=== PATIENT | female | born 1940 | race Caucasian/White ===

== ENCOUNTER 2022-12-23 10:29 | Outpatient (AMB) | payer OTHER, SELFPAY ==
--- OUTSIDE RECORDS SUMMARY | 2022-12-23 10:30 | XMS_ITS | Continuity of Care Document ---
Author Name Unknown Organization [facility] Care Address [address] [place] [address]- Care Team Providers Care Planer Mill Grader Name Role Phone Goldy Abarca Primary Care Physician Encounter [facility] [place] Date(s): 01/16/21 - 02/15/21 [facility] [address] [place] [address]- Attending Physician: Leda Thakur Admitting Physician: Admtr, Leda Referring Physician: Admtr, Ar8 Allergies, Adverse Reactions, Alerts Substance Reaction Severity Status penicillin Active Keflex Active Medications acetaminophen 325 mg oral tablet 650 mg, 2, tablet, By Mouth, Every 6 hours, PRN, Refills 0, Maintenance, Pain , Mild, 06/06/20 11:00:00 EST, Partial fill upon patient request if the prescription is for a schedule II opioid drug. Start Date: 06/06/20 Status: Ordered
--- OUTSIDE RECORDS SUMMARY | 2022-12-23 10:30 | XMS_ITS | Continuity of Care Document ---
Author Name Unknown Organization [facility] Address [address] [place] [address]- Care Team Providers Care Mortgage Protection Specialist Name Role Phone Goldy Abarca Primary Care Physician Encounter [facility] [place] Date(s): 12/19/21 - 01/18/22 [facility] [address] [place] [address]- Allergies, Adverse Reactions, Alerts Substance Reaction Severity Status penicillin rash Active Keflex rash Active Medications acetaminophen 325 mg oral tablet 650 mg, By Mouth, Every 4 hours, PRN, Temperature Greater than 100.5, Refills 0, Maintenance, Pain , Mild, 10/28/21 10:36:00 EDT, Partial fill upon patient request if the prescription is for a schedule II opioid drug. Start Date: 10/28/21 Status: Ordered Eliquis 5 mg oral tablet 1 tablet = 5 mg, By Mouth, 2 times a day, hold warfarin for 3 days prior to your next scheduled INRdraw. when INR <2, can permanently discontinue warfarin and start eliquis at 5mg BID, # 60 tablet, 11 Refills, Maintenance, 09/17/21 10:46:00 EDT, Tab... Start Date: 09/17/21 Status: Ordered sertraline 25 mg oral tablet 1 tablet = 25 mg, By Mouth, Daily, # 30 tablet, 0 Refills, Maintenance, 10/28/21 3:47:00 EDT, Tablet, Partial fill upon patient request if the prescription is for a schedule II opioid drug. Start Date: 10/28/21 Status: Ordered Problem List Condition Effective Dates Status Health Status Inform ant Deep vein thrombosis(Confirmed) Active Obese class I(Confirmed) Active
--- OUTSIDE RECORDS SUMMARY | 2022-12-23 10:31 | XMS_ITS | Continuity of Care Document ---
Author Name Unknown Organization [facility] Address [address] [place] [address]- Care Team Providers Care Social Service Liaison Name Role Phone Briana Teague MD Primary Care Physician [phone] [place] [facility] [place]21 - 06/01/21 [facility] [address] [place] [address]- [place] Allergies, Adverse Reactions, Alerts Substance Reaction Severity Status penicillin Active Keflex Active Medications cyclobenzaprine 5 mg oral tablet 1 tablet = 5 mg, By Mouth, 3 times a day, 0 Refills, Maintenance, 04/10/21 10:41:00 EDT, Partial fill upon patient request if the prescription is for a schedule II opioid drug. Start Date: 04/10/21 Status: Ordered Eliquis 5 mg oral tablet 1 tablet = 5 mg, By Mouth, 2 times a day, # 60 tablet, 0 Refills, Maintenance, 02/26/21 9:07:00 EDT, Tablet, Partial fill upon patient request if the prescription is for a schedule II opioid drug. Start Date: 02/26/21 Status: Ordered warfarin 2.5 mg oral tablet 2 tablet = 5 mg, By Mouth, Daily, # 42 tablet, 0 Refills, Maintenance, 04/24/21 13:36:00 EST, Tablet, [id number], Partial fill upon patient request if the prescription is for a schedule II opioid drug., 153, cm, 04/24/21 11:53:00 EST, Height,... Start Date: 04/24/21 Stop Date: 05/15/21 Status: Ordered warfarin 2.5 mg oral tablet 2 tablet = 5 mg, By Mouth, Daily, # 42 tablet, 0 Refills, Maintenance, 05/06/21 10:15:00 EST, Tablet, [id number], Partial fill upon patient request if the prescription is for a schedule II opioid drug., 153, cm, 04/24/21 11:53:00 EST, Height,... Start Date: 05/06/21 Stop Date: 05/27/21 Status: Ordered Problem List Condition Effective Dates Status Health Status Inform ant Obese class I(Confirmed) Active
--- OUTSIDE RECORDS SUMMARY | 2022-12-23 10:31 | XMS_ITS | Continuity of Care Document ---
Author Name Unknown Organization [facility] Address [address] [place] [address]- Care Team Providers Care Road Train Driver Name Role Phone Briana Teague MD Primary Care Physician Encounter [facility] [place] Date(s): 05/22/21 - 06/21/21 [facility] [address] [place] [address]- Allergies, Adverse Reactions, Alerts Substance Reaction Severity [...]
--- OUTSIDE RECORDS SUMMARY | 2022-12-23 10:31 | XMS_ITS | Continuity of Care Document ---
Author Name Unknown Organization [facility] Address [address] [place] [address]- Care Team Providers Care Palletizer Name Role Phone Briana Teague MD Primary Care Physician [place] [facility] [place]/24[place]21 - 05/24/21 [facility] [address] [place] [address]- Allergies, Adverse Reactions, Alerts Substance Reaction Severity [...] 0 Refills, Maintenance, 04/24/21 13:36:00 EST, Tablet, [facility]/pharmacy #[id number], Partial fill upon patient request if the prescription is for a schedule II opioid drug., 153, cm, 04/24/21 11:53:00 EST, Height,... Start Date: 04/24/21 Stop Date: 05/15/21 Status: Ordered warfarin 2.5 mg oral tablet 2 tablet = 5 mg, By Mouth, Daily, # 42 tablet, 0 Refills, Maintenance, 05/06/21 10:15:00 EST, Tablet, [facility]/pharmacy #[id number], Partial fill upon patient request if the prescription is for a schedule II opioid drug., 153, cm, 04/24/21 11:53:00 EST, Height,... Start Date: 05/06/21 Stop Date: 05/27/21 Status: Ordered Problem List Condition Effective Dates Status Health Status Inform ant Obese class I(Confirmed) Active
--- OUTSIDE RECORDS SUMMARY | 2022-12-23 10:31 | XMS_ITS | Continuity of Care Document ---
Author Name Unknown Organization [facility] ter Address [address] [place] [address]- Care Team Providers Care Primer Powder Blender Wet Name Role Phone Jessica MONACO, Connie Primary Care Physician Encounter [facility] [place] ACCT R [id number] Date(s): 05/07/21 - 05/07/[address] [address]- Attending Physician: Blanche Correa PharmD Allergies, Adverse Reactions, Alerts Substance Reaction Severity [...] 0 Refills, Maintenance, 04/24/21 13:36:00 EST, Tablet, [facility]/pharmacy #[id number], Partial fill upon patient request if the prescription is for a schedule II opioid drug., 153, cm, 04/24/21 11:53:00 EST, Height,... Start Date: 04/24/21 Stop Date: 05/15/21 Status: Ordered warfarin 2.5 mg oral tablet 2 tablet = 5 mg, By Mouth, Daily, # 42 tablet, 0 Refills, Maintenance, 05/06/21 10:15:00 EST, Tablet, [facility]/pharmacy #[id number], Partial fill upon patient request if the prescription is for a schedule II opioid drug., 153, cm, 04/24/21 11:53:00 EST, Height,... Start Date: 05/06/21 Stop Date: 05/27/21 Status: Ordered Problem List Condition Effective Dates Status Health Status Inform ant Obese class I(Confirmed) Active
--- OUTSIDE RECORDS SUMMARY | 2022-12-23 10:31 | XMS_ITS | Continuity of Care Document ---
Author Name Unknown Organization [facility] ancer Care Address [address] [place] [address]- Care Team Providers Care Semiautomatic Taper Operator Name Role Phone Goldy Abarca Primary Care Physician [place] [facility] [place](s): 06/25/22 - 07/25/22 [facility] [address] [place] [address]- Attending Physician: Leda Thakur Admitting Physician: Leda Thakur Referring Physician: AdmtrLeda Allergies, Adverse Reactions, Alerts Substance Reaction Severity [...] By Mouth, 2 times a day, # 180 tablet, 0 Refills, Maintenance, 07/13/22 11:36:00 EST, Tablet, [facility]/pharmacy #[id number], Partial fill upon patient request if the prescription is for a schedule II opioid drug., 154.94, cm, 12/19/21 15:27:00 E... Start Date: 07/13/22 Status: Ordered sertraline 25 mg oral tablet 1 tablet = 25 mg, By Mouth, Daily, # 30 tablet, 0 Refills, Maintenance, 10/28/21 3:47:00 EDT, Tablet, Partial fill upon patient request if the prescription is for a schedule II opioid drug. Start Date: 5/24/22 Status: Ordered Problem List Condition Confirmation Course Effective Dates Status Health St atus Informant Deep vein thrombosis Confirmed Active Obese class I Confirmed Active Note * Event Display: IR Special Procedures, Non-BH Authored Date: * Event Display: Non BH Lab Results Authored Date: * Event Display: IR Special Procedures, Non-BH Authored Date: * Event Display: CT Scan Chest, Non- BH Authored Date: * Event Display: Ultrasound Lower Extremity, Non-BH Authored Date: Patient Care team information Care Team Personnel Name: Fay Roy PharmD Position: [facility] Associate Professional Member Role: Lifetime Consulting Provider Address: Address: [address] [place] [address] [place] [address]- Name: Goldy Abarca Position: Reference Physician Member Role: PCP Address: Address: [address] [place] [address]- Care Team Related Persons Name: MARIANNE GRAY Address: home [address] [place] [address]
--- OUTSIDE RECORDS SUMMARY | 2022-12-23 10:31 | XMS_ITS | Continuity of Care Document ---
Author Name Unknown Organization [facility] Address [address] [place] [address]- Care Team Providers Care Landfill Gas Collection Operator Name Role Phone Goldy Abarca Primary Care Physician En[place] [facility] [place]s): 11/12/21 - 02/18/22 [facility] [address] [place] [address]- Discharge Disposition: A-D/C Home Attending Physician: Connie Lopez MD Admitting Physician: Connie Lopez MD Referring Physician: Goldy Abarca Allergies, Adverse Reactions, Alerts Substance Reaction Severity [...] vein thrombosis(Confirmed) Active Obese class I(Confirmed) Active Vital Signs Most recent to oldest [Reference Range]: 1 Height 154.94 cm (12/19/21 3:27 PM) Weight 79.2 kg (12/19/21 3:27 PM) Pulse Rate [55-90 bpm] 102 bpm *H* (12/19/21 3:27 PM) Body Mass Index [18.5-24.99] 32.99 *>HHI* (12/19/21 3:27 PM) Blood Pressure [90-138/55-84 mm Hg] 124/ 87mm Hg (12/19/21 3:27 PM) Temperature [96.8-100.4 DegF] 96.8 DegF (12/19/21 3:27 PM) Blood pressure sites Arm, left (12/19/21 3:27 PM) Temperature Route Temporal (12/19/21 3:27 PM) Dry Weight 79.2 kg (12/19/21 3:27 PM) Weight Obtained Via Standing scale (12/19/21 3:27 PM) Dry Weight Obtained Via Standing scale (12/19/21 3:27 PM) Care Team Personnel Name: Goldy Abarca Address: [address] [place] [id number]
--- OUTSIDE RECORDS SUMMARY | 2022-12-23 10:31 | XMS_ITS | Continuity of Care Document ---
Author Name Unknown Organization [facility] Address [address] [address]- Care Team Providers Care Rig Site Engineer Name Role Phone Briana Teague MD Primary Care Physician [phone] [place] [facility] [place]07[place]21 - 06/06/21 [facility] [address] [address] [place] Allergies, Adverse Reactions, Alerts Substance Reaction Severity [...] Refills, Maintenance, 04/24/21 13:36:00 EST, Tablet, [facility]/pharmacy #[id number], Partial fill upon patient request if the prescription is for a schedule II opioid drug., 153, cm, 04/24/21 11:53:00 EST, Height,... Start Date: 04/24/21 Stop Date: 05/15/21 Status: Ordered warfarin 2.5 mg oral tablet 2 tablet = 5 mg, By Mouth, Daily, # 42 tablet, 0 Refills, Maintenance, 05/06/21 10:15:00 EST, Tablet, [facility]/pharmacy #[id number], Partial fill upon patient request if the prescription is for a schedule II opioid drug., 153, cm, 04/24/21 11:53:00 EST, Height,... Start Date: 05/06/21 Stop Date: 05/27/21 Status: Ordered Problem List Condition Effective Dates Status Health Status Inform ant Obese class I(Confirmed) Active
--- OUTSIDE RECORDS SUMMARY | 2022-12-23 10:31 | XMS_ITS | Continuity of Care Document ---
Author Name Unknown Organization [facility] Address [address] [place] [address]- Care Team Providers Care Marble Ceiling Installer Name Role Phone Jessica MONACO, Connie Primary Care Physician Encounter [facility] [place] ACCT R [id number] Date(s): 03/03/21 - 05/08/21 [facility] [address] [place] [address]- Attending Physician: Cornelio Orosco MD Admitting Physician: Cornelio Orosco MD Referring Physician: Briana Teague MD Allergies, Adverse Reactions, Alerts Substance Reaction Severity [...] 0 Refills, Maintenance, 04/24/21 13:36:00 EST, Tablet, [facility]/pharmacy #[id number], Partial fill upon patient request if the prescription is for a schedule II opioid drug., 153, cm, 04/24/21 11:53:00 EST, Height,... Start Date: 04/24/21 Stop Date: 05/15/21 Status: Ordered warfarin 2.5 mg oral tablet 2 tablet = 5 mg, By Mouth, Daily, # 42 tablet, 0 Refills, Maintenance, 05/06/21 10:15:00 EST, Tablet, [facility]/pharmacy #[id number], Partial fill upon patient request if the prescription is for a schedule II opioid drug., 153, cm, 04/24/21 11:53:00 EST, Height,... Start Date: 05/06/21 Stop Date: 05/27/21 Status: Ordered Problem List Condition Effective Dates Status Health Status Inform ant Obese class I(Confirmed) Active
--- OUTSIDE RECORDS SUMMARY | 2022-12-23 10:31 | XMS_ITS | Continuity of Care Document ---
Author Name Unknown Organization [facility] Address [address] [place] [address]- Care Team Providers Care Tv News Director Name Role Phone Goldy Abarca Primary Care Physician Encounter [facility] [place] Date(s): 06/10/21 - 07/10/21 [facility] [address] [place] [address]- Attending Physician: Leda Thakur Admitting Physician: Leda Thakur Referring Physician: AdmtrLeda Allergies, Adverse Reactions, Alerts Substance Reaction Severity Status penicillin rash Active Keflex rash Active Medications cyclobenzaprine 5 mg oral tablet 1 tablet = 5 mg, By Mouth, 3 times a day, 0 Refills, Maintenance, 04/10/21 10:41:00 EDT, Partial fill upon patient request if the prescription is for a schedule II opioid drug. Start Date: 04/10/21 Status: Ordered Problem List Condition Effective Dates Status Health Status Inform ant Deep vein thrombosis(Confirmed) Active Obese class I(Confirmed) Active
--- OUTSIDE RECORDS SUMMARY | 2022-12-23 10:31 | XMS_ITS | Continuity of Care Document ---
Author Name Unknown Organization [facility] Address [address] [place] [address]- Care Team Providers Care Bar Assistant Name Role Phone Goldy Abarca Primary Care Physician [place] [facility] [place]15[place] 10/15/21 [facility] [address] [place] [address]- Attending Physician: Leda Thakur Admitting Physician: Leda Thakur Referring Physician: AdmtrLeda Allergies, Adverse Reactions, Alerts Substance Reaction Severity Status penicillin rash Active Keflex rash Active Medications Eliquis 5 mg oral tablet 1 tablet = 5 mg, By Mouth, 2 times a day, hold warfarin for 3 days prior to your next scheduled INRdraw. when INR <2, can permanently discontinue warfarin and start eliquis at 5mg BID, # 60 tablet, 11 Refills, Maintenance, 09/17/21 10:46:00 EDT, Tab... Start Date: 09/17/21 Status: Ordered warfarin 2.5 mg oral tablet See Instructions, Take 1-2 tablets daily as directed by the anticoagulation clinic, # 60 tablet, 5 Refills, Maintenance, 07/28/21 11:18:00 EST, Tablet, [id number], Partial fill upon patient request if the prescription is for a schedule II opio... Start Date: 07/28/21 Status: Ordered Problem List Condition Effective Dates Status Health Status Inform ant Deep vein thrombosis(Confirmed) Active Obese class I(Confirmed) Active
--- OUTSIDE RECORDS SUMMARY | 2022-12-23 10:31 | XMS_ITS | Continuity of Care Document ---
Author Name Unknown Organization [facility] Address [address] [place] [address]- Care Team Providers Care Food Inspector Name Role Phone Briana Teague MD Primary Care Physician Encounter [facility] [place] Date(s): 06/10/21 - 06/17/21 [facility] [address] [place] [address]- Attending Physician: Goldy Villalpando MD Admitting Physician: Goldy Villalpando MD Referring Physician: Briana Teague MD Allergies, [...] 0 Refills, Maintenance, 04/24/21 13:36:00 EST, Tablet, [facility]/pharmacy #[id number], Partial fill upon patient request if the prescription is for a schedule II opioid drug., 153, cm, 04/24/21 11:53:00 EST, Height,... Start Date: 04/24/21 Stop Date: 05/15/21 Status: Ordered warfarin 2.5 mg oral tablet 2 tablet = 5 mg, By Mouth, Daily, # 42 tablet, 0 Refills, Maintenance, 05/06/21 10:15:00 EST, Tablet, [facility]/pharmacy #[id number], Partial fill upon patient request if the prescription is for a schedule II opioid drug., 153, cm, 04/24/21 11:53:00 EST, Height,... Start Date: 05/06/21 Stop Date: 05/27/21 Status: Ordered Problem List Condition Effective Dates Status Health Status Inform ant Obese class I(Confirmed) Active
--- OUTSIDE RECORDS SUMMARY | 2022-12-23 10:31 | XMS_ITS | Continuity of Care Document ---
Author Name Unknown Organization [facility] ter Address [address] [place] [address]- Care Team Providers Care Bag Loader Name Role Phone Goldy Abarca Primary Care Physician Encounter [facility] [place] Date(s): 08/27/21 - 08/27/[address] [address]- Encounter Diagnosis Acid reflux(Final) - 08/27/21 Discharge Disposition: A-D/C Home Attending Physician: Chadwick Thurston MD Admitting Physician: Chadwick Thurston MD Referring Physician: Not on Staff, Referring MD Allergies, Adverse Reactions, Alerts Substance Reaction Severity Status penicillin rash Active Keflex rash Active Medications cyclobenzaprine 5 mg oral tablet 1 tablet = 5 mg, By Mouth, 3 times a day, 0 Refills, Maintenance, 04/10/21 10:41:00 EDT, Partial fill upon patient request if the prescription is for a schedule II opioid drug. Start Date: 04/10/21 Status: Ordered pantoprazole 20 mg oral delayed release tablet 1 tablet = 20 mg, By Mouth, Daily, # 14 tablet, 0 Refills, Maintenance, 08/27/21 6:43:00 EDT, CR Tablet, 154.94, cm, 06/25/21 14:33:00 EST, Height, 77.27, kg, 06/25/21 14:33:00 EST, Dry Weight Start Date: 08/27/21 Status: Ordered warfarin 2.5 mg oral tablet See Instructions, Take 1-2 tablets daily as directed by the anticoagulation clinic, # 60 tablet, 5 Refills, Maintenance, 07/28/21 11:18:00 EST, Tablet, [id number], Partial fill upon patient request if the prescription is for a schedule II opio... Start Date: 07/28/21 Status: Ordered Problem List Condition Effective Dates Status Health Status Inform ant Deep vein thrombosis(Confirmed) Active Obese class I(Confirmed) Active Results Radiology Reports * Exam Date Time Procedure Performing Provider Status 08/27/21 4:27 AM Chest 2 Views Frontal and Lat Adela Leone; Jermaine (Verified) Notes: (Chest 2 Views Frontal and Lat) Reason For Exam: Chest Pain;Other: RESULT: Chest 2 Views Frontal and Lat Chest 2 Views Frontal and Lat Hx of Present Illness: Pt sts that she went to bed fine, but I woke up about 3am and couldn't catch my breath...and I had a terrible burning in my throat . Sxs resolved but my throat doesn't' feel quite right . +cough presently- no cp; no back pain; no abd pain; no n v; +di; Reason: Chest Pain; Clinical Question(s): CHF. COMPARISON: None. FINDINGS: LINES AND TUBES: None. LUNGS AND PLEURA: Mildly prominent vascular markings. No focal consolidation. No significant pleural effusion. No pneumothorax. HEART, MEDIASTINUM AND CARLY: Heart is normal in size. Bilateral hilar fullness. BONES AND SOFT TISSUES: No acute abnormality. IMPRESSION: Mild pulmonary vascular congestion. Bilateral hilar fullness could be due to vascular prominence but lymphadenopathy is also in the differential diagnosis. I have personally reviewed the images and I agree with this report. WSN: [id number] Ordering Physician: Cheng Her Dictated By: Willis Feng DO Dictated Date/Time: 08/27/21 8:05 am Reviewed By: Jorge Luis Urrutia MD Signed By: Jorge Luis Urrutia MD Signed Date/Time: 08/27/21 8:10 am Transcribed By: ANUM Transcribed Date/Time: 08/27/21 8:02 am Vital Signs Most recent to oldest [Reference Range]: 1 2 3 Oxygen Saturation [94-100 %] 100 % (08/27/21 6:48 AM) 100 % (08/27/21 5:46 AM) 98 % (08/27/21 4:02 AM) Pulse Rate [55-90 bpm] 80 bpm (08/27/21 6:48 AM) 79 bpm (08/27/21 5:46 AM) 80 bpm (08/27/21 4:02 AM) Blood Pressure [90-138/55-84 mm Hg] 144/72mm Hg *H* (08/27/21 6:48 AM) 148/94mm Hg *H* (08/27/21 5:46 AM) 151/71mm Hg *H* (08/27/21 4:02 AM) Respiratory Rate [16-30 br/min] 20 br/min (08/27/21 6:48 AM) 18 br/min (08/27/21 5:46 AM) 20 br/min (08/27/21 4:02 AM) Temperature [96.8-100.4 DegF] 98.6 DegF (08/27/21 6:48 AM) 98.7 DegF (08/27/21 5:46 AM) 98.9 DegF (08/27/21 4:02 AM) Mode of Delivery (Oxygen) Room air (08/27/21 6:48 AM) Room air (08/27/21 5:46 AM) Room air (08/27/21 4:02 AM) Temperature Route Oral (08/27/21 5:46 AM) Oral (08/27/21 4:02 AM)
--- OUTSIDE RECORDS SUMMARY | 2022-12-23 10:31 | XMS_ITS | Continuity of Care Document ---
Author Name Unknown Organization [facility] Address [address] [place] [address]- Care Team Providers Care Program Director Name Role Phone Briana Teague MD Primary Care Physician Encounter [facility] [place] Date(s): 05/09/21 - 06/08/21 [facility] [address] [place] [address]- Allergies, Adverse Reactions, Alerts Substance Reaction Severity [...]
--- OUTSIDE RECORDS SUMMARY | 2022-12-23 10:31 | XMS_ITS | Continuity of Care Document ---
Author Name Unknown Organization [facility] Address [address] [place] [address]- Care Team Providers Care Gaming Associate Name Role Phone Briana Teague MD Primary Care Physician En[place] [facility] [place] Date(s): 05/06/21 - 06/05/21 [facility] [address] [place] [address]- Allergies, Adverse Reactions, Alerts Substance Reaction Severity [...]
--- OUTSIDE RECORDS SUMMARY | 2022-12-23 10:31 | XMS_ITS | Continuity of Care Document ---
Author Name Unknown Organization [facility] ter Address [address] [place] [address]- Care Team Providers Care Ordnance Engineering Technician Name Role Phone Goldy Abarca Primary Care Physician ( [phone] Encounter [facility] [place] Date(s): 10/27/21 - 10/28/[address] [address]- Encounter Diagnosis Shoulder dislocation(Final) - 10/27/21 Humeral fracture(Final) - 10/27/21 Fall(Final) - 10/28/21 Discharge Disposition: A-D/C Home Attending Physician: Nadia Quiroz MD Admitting Physician: Roshan MONACO, Arnulfo Referring Physician: Not on Staff, Referring MD [...] EDT, Tab... Start Date: 09/17/21 Status: Ordered HYDROmorphone Inj 0.5 mg, Injection, IV Push Slowly, Once, STAT, 10/28/21 3:54:00 EDT, Stop date 10/28/21 3:54:00 EDT Start Date: 10/28/21 Stop Date: 10/28/21 Status: Completed oxyCODONE 5 mg oral tablet 5 mg, 1, tablet, By Mouth, Every 6 hours, PRN, for 3 days, # 12 tablet, Refills 0, Tot. Refills 0, Acute 10/31/21 10:36:00 EDT, Pain , Moderate, 10/28/21 10:36:00 EDT, Route to Pharmacy Electronically, [facility], Partial fill upon patie... Start Date: 10/28/21 Stop Date: 10/31/21 Status: Ordered sertraline 25 mg oral tablet [...] Exam Date Time Procedure Performing Provider Status 10/27/21 8:18 PM Shoulder Min 2 Views Left Desrosier, E shaq; Auth (Verified) Notes: (Shoulder Min 2 Views Left) Reason For Exam: Post-Reduction RESULT: Shoulder Min 2 Views Left Shoulder Min 2 Views Left, 4 views Hx of Present Illness: Pt. is from home with Left shoulder pain since this am.; Reason: Post-Reduction; Clinical Question(s): Other:; post reduction; Special Instructions: Please get an axillary COMPARISON: None. FINDINGS: There is no dislocation. There is a comminuted fracture in the humeral head with mild displacement in the greater trochanter. There is also fragmentation in the inferior anterior glenoid. Increased interstitial markings in the visualized lung field. IMPRESSION: 1. Comminuted Hill-Sachs and Bankart fractures with normal alignment of the glenohumeral joint. 2. Interval development of pulmonary edema. WSN: [id number] Ordering Physician: Crystal Centeno Dictated By: Jorge Luis Urrutia MD Dictated Date/Time: 10/27/21 8:34 pm Reviewed By: Jorge Luis Urrutia MD Signed By: Jorge Luis Urrutia MD Signed Date/Time: 10/27/21 8:34 pm Transcribed By: ANUM Transcribed Date/Time: 10/27/21 8:31 pm * Exam Date Time Procedure Performing Provider Status 10/27/21 7:00 PM Shoulder 1 View Left Fay Erickson; Auth (Verified) Notes: (Shoulder 1 View Left) Reason For Exam: with Pain;Trauma RESULT: Shoulder 1 View Left Shoulder 1 View Left, 1 view Hx of Present Illness: Pt. is from home with Left shoulder pain sinc this am.; Reason: Trauma; withPain; Clinical Question(s): Fracture COMPARISON: 10/28/2019 2:55 PM and correlation with CT same date at 4:58 PM. FINDINGS: Single view demonstrates reduction of left shoulder dislocation. Mildly displaced lateral humeral head/tuberosity fracture. IMPRESSION: Single view demonstrates reduction of left shoulder dislocation. Mildly displaced lateral humeral head/tuberosity fracture. WSN: [id number] Ordering Physician: Yo Bowser Dictated By: Azul Nolan MD, I Dictated Date/Time: 10/27/21 7:15 pm Reviewed By: Azul Nolan MD, I Signed By: Azul Nolan MD, I Signed Date/Time: 10/27/21 7:15 pm Transcribed By: ANUM Transcribed Date/Time: 10/27/21 7:11 pm * Exam Date Time Procedure Performing Provider Status 10/27/21 2:50 PM Shoulder Min 2 Views Left Phil Machado; Auth (Verified) Notes: (Shoulder Min 2 Views Left) Reason For Exam: with Pain;Trauma RESULT: Shoulder Min 2 Views Left Humerus Min 2 Views Left, Shoulder Min 2 Views Left, views Reason: Trauma; with Pain; Clinical Question(s): Fracture COMPARISON: None. FINDINGS: Left humeral head is dislocated anteriorly and inferiorly with a large acute appearing Hill-Sachs deformity. IMPRESSION: Fracture dislocation left shoulder. WSN: [id number] Ordering Physician: Reta Cabral Dictated By: Andres Herrera MD Dictated Date/Time: 10/27/21 3:29 pm Reviewed By: Andres Herrera MD Signed By: Andres Herrera MD Signed Date/Time: 10/27/21 3:29 pm Transcribed By: ANUM Transcribed Date/Time: 10/27/21 3:27 pm * Exam Date Time Procedure Performing Provider Status 10/27/21 2:50 PM Humerus Min 2 Views Left Tone Machado; Auth (Verified) Notes: (Humerus Min 2 Views Left) Reason For Exam: with Pain;Trauma RESULT: Humerus Min 2 Views Left Humerus Min 2 Views Left, Shoulder Min 2 Views Left, views Reason: Trauma; with Pain; Clinical Question(s): Fracture COMPARISON: None. FINDINGS: Left humeral head is dislocated anteriorly and inferiorly with a large acute appearing Hill-Sachs deformity. IMPRESSION: Fracture dislocation left shoulder. WSN: [id number] Ordering Physician: Reta Cabral Dictated By: Andres Herrera MD Dictated Date/Time: 10/27/21 3:29 pm Reviewed By: Andres Herrera MD Signed By: Andres Herrera MD Signed Date/Time: 10/27/21 3:29 pm Transcribed By: ANUM Transcribed Date/Time: 10/27/21 3:27 pm Vital Signs Most recent to oldest [Reference Range]: 1 2 3 Oxygen Saturation [94-100 %] 99 % (10/28/21 12:40 PM) 98 % (10/28/21 10:32 AM) 98 % (10/28/21 4:44 AM) Pulse Rate [55-90 bpm] 84 bpm (10/28/21 12:40 PM) 67 bpm (10/28/21 10:32 AM) 70 bpm (10/28/21 4:44 AM) Blood Pressure [90-138/55-84 mm Hg] 132/70mm Hg (10/28/21 12:40 PM) 124/78mm Hg (10/28/21 10:32 AM) 125/64mm Hg (10/28/21 4:44 AM) Respiratory Rate [16-30 br/min] 20 br/min (10/28/21 12:40 PM) 16 br/min (10/28/21 10:32 AM) 14 br/min *L* (10/28/21 5:11 AM) Temperature [96.8-100.4 DegF] 98.8 DegF (10/28/21 4:44 AM) 99.3 DegF (10/27/21 5:13 PM) 99.1 DegF (10/27/21 1:47 PM) Liters per Minute 2 L/min (10/27/21 9:00 PM) 3 L/min (10/27/21 7:00 PM) Mode of Delivery (Oxygen) Room air (10/28/21 12:40 PM) Room air (10/28/21 10:32 AM) Room air (10/28/21 4:44 AM) Blood pressure sites Arm, left (10/28/21 12:40 PM) Arm, right (10/28/21 4:44 AM) Arm, right (10/27/21 9:00 PM) Temperature Route Oral (10/27/21 5:13 PM) Oral (10/27/21 1:47 PM)
--- OUTSIDE RECORDS SUMMARY | 2022-12-23 10:31 | XMS_ITS | Continuity of Care Document ---
Author Name Unknown Organization [facility] ter Address [address] [place] [address]- Care Team Providers Care State Editor Name Role Phone Goldy Abarca Primary Care Physician Encounter [facility] [place] Date(s): 07/09/21 - 07/09/[address] [address] Discharge Disposition: A-D/C Home Attending Physician: Cornelio Orosco MD Admitting Physician: Cornelio Orosco MD Referring Physician: Cornelio Orosco MD Allergies, Adverse Reactions, Alerts Substance Reaction [...] Most recent to oldest [Reference Range]: 1 Oxygen Saturation [94-100 %] 97 % (07/09/21 7:19 AM) Pulse Rate [55-90 bpm] 80 bpm (07/09/21 7:19 AM) Blood Pressure [90-138/55-84 mm Hg] 126/ 70mm Hg (07/09/21 7:19 AM) Respiratory Rate [16-30 br/min] 18 br/mi n (07/09/21 7:19 AM) Temperature [96.8-100.4 DegF] 97.6 DegF (07/09/21 7:19 AM) Mode of Delivery (Oxygen) Room air (07/09/21 7:19 AM) Blood pressure sites Arm, left (07/09/21 7:19 AM) Temperature Route Temporal (07/09/21 7:19 AM)
--- OUTSIDE RECORDS SUMMARY | 2022-12-23 10:31 | XMS_ITS | Continuity of Care Document ---
Author Name Unknown Organization [facility] Address [address] [place] [address]- Care Team Providers Care Credit Representative Name Role Phone Goldy Abarca Primary Care Physician ( [phone] Encounter [facility] [place] Date(s): 06/25/22 - 11/07/22 [facility] [address] [place] [address]- Discharge Disposition: A-D/C Home Attending Physician: Connie [...] 0 Refills, Maintenance, 07/13/22 11:36:00 EST, Tablet, [id number], Partial fill upon patient request if the prescription is for a schedule II opioid drug., 154.94, cm, 12/19/21 15:27:00 E... Start Date: 07/13/22 Status: Ordered lidocaine 5% topical film 1 patch, Topically, Daily, PRN Pain , Mild, remove after 12 hours, # 13 each, 0 Refills, Maintenance, 09/07/22 10:49:00 EDT, Film, Partial fill upon patient request if the prescription is for a schedule II opioid drug. Start Date: 09/07/22 Status: Ordered Problem List Condition Confirmation Course Effective Dates Status Health St atus Informant Deep vein thrombosis Confirmed Active Obese class I Confirmed Active Vital Signs Most recent to oldest [Reference Range]: 1 Height 154.94 cm (09/07/22 10:39 AM) Weight 80.5 kg (09/07/22 10:39 AM) Oxygen Saturation [94-100 %] 98 % (09/07/22 10:39 AM) Pulse Rate [55-90 bpm] 92 bpm *H* (09/07/22 10:39 AM) Body Mass Index [18.5-24.99 kg/m2] 33.53 kg/m2 *>HHI* (09/07/22 10:39 AM) Blood Pressure [90-138/55-84 mm Hg] 124/ 83mm Hg (09/07/22 10:39 AM) Temperature [96.8-100.4 DegF] 98.6 DegF (09/07/22 10:39 AM) Blood pressure sites Arm, left (09/07/22 10:39 AM) Temperature Route Oral (09/07/22 10:39 AM) Dry Weight 80.5 kg (09/07/22 10:39 AM) Weight Obtained Via Standing scale (09/07/22 10:39 AM) Dry Weight Obtained Via Standing scale (09/07/22 10:39 AM) Note * Elba Isbell: PERFORM, SIGN, VERIFY Event Display: Patient Education/Instruction Authored Date: [facility] *Heme/Onc Adult Clinical Summary Name JOCELYN KILLIAN Age 81 Years 1940 PCP Goldy Abarca PCP Visit Date 06/25/2022 14:45:00 Additional Instructions: Scheduled Appointments?? Future Appointments ?No Future Appointments Scheduled Follow-Up Instructions ?? With: Address: When: Connie Jessica [address] [place] [address] [place] [address] Business (1) 09/09/2023 10:30 AM Diagnosis Medications: Please continue your medications until treatment is completed or stopped by your provider. Discuss any questions related to medications with your provider. New Medications [id number], [address] [place] [id number], [phone] apixaban (Eliquis 5 mg oral tablet) 1 tab(s) Oral twice a day. Refills: 0. Next Dose: Medications to Continue with No Changes These medications were not printed or sent to your pharmacy Acetaminophen (acetaminophen 325 mg oral tablet) 650 Milligram Oral every 4 hours as needed Pain , Mild. Temperature Greater than 100.5. Next Dose: Lidocaine Topical (lidocaine 5% topical film) 1 patch(es) Topically Daily as needed Pain , Mild. remove after 12 hours. Next Dose: No Longer Take the Following Medications Sertraline (sertraline 25 mg oral tablet) 1 tab(s) Oral Daily. Allergy Info:?? Keflex; penicillin Medications Given This Visit Future Orders ?No future orders Vital Signs Height 154.94 cm Weight 80.5 kg BMI 33.53 kg/m2 Blood Pressure 124 mm Hg/83 mm Hg Temperature 98.6 DegF Pulse Rate 92 bpm Respiratory Rate 02 Sat Mode of Delivery 98 %/ You can now view a summary of your hospital visit from the comfort of your home through a free online portal called [facility]. [facility] is a website that allows you to securely view your medical information including discharge summary, medications and follow-up visits. ??You can alsosend a secure electronic message to your doctor???s office to request appointments, renew medications or just ask a question. You can enroll at [email or web address] or register during your next office visit. Disclaimer:?? The information provided is of a general nature and is intended to be used in conjunction with the recommendations and advice of your health care practitioner. ??Every effort has been made to ensure that the information provided is accurate and complete at the time it is provided to you however, as your needs change, or, as new ??information becomes available, different or additional instructions may be required. If you have questions, please consult with your primary care provider or pharmacist, as appropriate. ??This information is not intended to serve as substitution for assessment and evaluation by a qualified health care provider. If you do not have a primary care provider, you may find a [facility] provider by calling [facility] at [phone]. For information about the plan of care including goals and instructions for your diagnosis, please see the patient education orders section of this document. Patient Education Materials?? The content of this educational material or handout may have been modified, supplemented, or adapted from its original content and format to support your individualized medical care. Patient Care team information Care Team Personnel Name: Fay Roy PharmD Position: [facility] Associate Professional Member Role: Lifetime Consulting Provider Address: Address: [address] [place] [address] [place] [address]- Name: Goldy Abarca Position: Reference Physician Member Role: PCP Address: Address: [address] [place] [address] - Care Team Related Persons Name: MARIANNE GRAY Address: home [address] [place], [place] Name: SAAD GRAY Address: home [address] [place] [address]
--- OUTSIDE RECORDS SUMMARY | 2022-12-23 10:31 | XMS_ITS | Continuity of Care Document ---
Author Name Unknown Organization [facility] Address [address] [place] [address]- Care Team Providers Care Range Aid Name Role Phone Briana Teague MD Primary Care Physician Encounter [facility] [place] Date(s): 03/07/21 - 04/06/21 [facility] [address] [place], [place] [address] Attending Physician: Leda Thakur Admitting Physician: AdmtrLeda Referring Physician: Admtr, Ar8 Allergies, Adverse Reactions, Alerts Substance Reaction Severity Status penicillin Active Keflex Active Medications Eliquis 5 mg oral tablet 1 tablet = 5 mg, By Mouth, 2 times a day, # 60 tablet, 0 Refills, Maintenance, 02/26/21 9:07:00 EDT, Tablet, Partial fill upon patient request if the prescription is for a schedule II opioid drug. Start Date: 02/26/21 Status: Ordered
--- OUTSIDE RECORDS SUMMARY | 2022-12-23 10:31 | XMS_ITS | Continuity of Care Document ---
Author Name Unknown Organization [facility] Address [address] [place] [address]- Care Team Providers Care Skiagrapher Name Role Phone Briana Teague MD Primary Care Physician Encounter [facility] Date(s): 03/03/21 - 03/10/21 [facility] [address] [place] [address]- Attending Physician: Cornelio Orosco MD Admitting Physician: Cornelio Orosco MD Referring Physician: Nagi Rosales MD Allergies, Adverse Reactions, Alerts Substance Reaction Severity Status penicillin Active Keflex Active Medications Eliquis 5 mg oral tablet 1 tablet = 5 mg, By Mouth, 2 times a day, # 60 tablet, 0 Refills, Maintenance, 02/26/21 9:07:00 EDT, Tablet, Partial fill upon patient request if the prescription is for a schedule II opioid drug. Start Date: 02/26/21 Status: Ordered Vital Signs Most recent to oldest [Reference Range]: 1 Height 153 cm (03/03/21 1:14 PM) Weight 75.9 kg (03/03/21 1:14 PM) Pulse Rate [55-90 bpm] 68 bpm (03/03/21 1:14 PM) Body Mass Index [18.5-24.99] 32.42 *>HHI* (03/03/21 1:14 PM) Blood Pressure [90-138/55-84 mm Hg] 128/ 84mm Hg (03/03/21 1:14 PM) Blood pressure sites Arm, right (03/03/21 1:14 PM) Weight Obtained Via Patient/family state d (03/03/21 1:14 PM)
--- OUTSIDE RECORDS SUMMARY | 2022-12-23 10:31 | XMS_ITS | Continuity of Care Document ---
Author Name Unknown Organization [facility] Address [address] [place] [address]- Care Team Providers Care Nc Manager Name Role Phone Goldy Abarca Primary Care Physician [place] [facility] [place] 11/12/21 - 12/12/21 [facility] [address] [place] [address]- Attending Physician: Leda Thakur Admitting Physician: Leda [...]
--- OUTSIDE RECORDS SUMMARY | 2022-12-23 10:31 | XMS_ITS | Continuity of Care Document ---
Author Name Unknown Organization [facility] Address [address] [place] [address]- Care Team Providers Care Lining Feller Name Role Phone Goldy Abarca Primary Care Phys[id number] Date[facility] 01/16[facility] - 07/05/21 [facility] [address] [place] [address]- Discharge Disposition: A-D/C Home Attending Physician: Connie Lopez MD Admitting Physician: Connie Lopez MD Referring Physician: Sabas Lyle MD Allergies, Adverse Reactions, Alerts Substance Reaction [...] Status Inform ant Obese class I(Confirmed) Active Vital Signs Most recent to oldest [Reference Range]: 1 2 3 Height 153 cm (04/24/21 11:53 AM) 153 cm (04/10/21 10:23 AM) 153 cm (02/26/21 8:55 AM) Weight 81.3 kg (04/24/21 11:53 AM) 79.9 kg (04/10/21 10:23 AM) 77.9 kg (02/26/21 8:55 AM) Pulse Rate [55-90 bpm] 83 bpm (04/24/21 11:53 AM) 84 bpm (04/10/21 10:23 AM) 75 bpm (02/26/21 8:55 AM) Body Mass Index [18.5-24.99] 34.73 *>HHI* (04/24/21 11:53 AM) 34.13 *>HHI* (04/10/21 10:23 AM) 33.28 *>HHI* (02/26/21 8:55 AM) Blood Pressure [90-138/55-84 mm Hg] 144/83mm Hg *H* (04/24/21 11:53 AM) 136/85mm Hg (04/10/21 10:23 AM) 133/70mm Hg (02/26/21 8:55 AM) Temperature [96.8-100.4 DegF] 99.3 DegF (04/24/21 11:53 AM) 98.0 DegF (04/10/21 10:23 AM) 97.5 DegF (02/26/21 8:55 AM) Blood pressure sites Arm, left (04/24/21 11:53 AM) Arm, left (04/10/21 10:23 AM) Arm, right (02/26/21 8:55 AM) Temperature Route Temporal (04/24/21 11:53 AM) Temporal (04/10/21 10:23 AM) Temporal (02/26/21 8:55 AM) Dry Weight 81.3 kg (04/24/21 11:53 AM) 79.9 kg (04/10/21 10:23 AM) 77.9 kg (02/26/21 8:55 AM) Weight Obtained Via Standing scale (04/24/21 11:53 AM) Standing scale (04/10/21 10:23 AM) Standing scale (02/26/21 8:55 AM) Dry Weight Obtained Via Standing scale (04/24/21 11:53 AM) Standing scale (04/10/21 10:23 AM) Standing scale (02/26/21 8:55 AM)
--- OUTSIDE RECORDS SUMMARY | 2022-12-23 10:31 | XMS_ITS | Continuity of Care Document ---
Author Name Unknown Organization [facility] Address [address] [place] [address]- Care Team Providers Care Director Of Casino Name Role Phone Not on Staff, PCP Primary Care Physician Unavail able Encounter [facility] [place] Date(s): 06/04/20 - 06/07/[address] [address]- Discharge Disposition: A-D/C Home Attending Physician: Heath Acveedo MD Admitting Physician: Jazmin Lang MD Referring Physician: Not on Staff, Referring [...] opioid drug. Start Date: 06/06/20 Status: Ordered levoFLOXacin 500 mg oral tablet 1 tablet = 500 mg, By Mouth, Every 24 hours, for 5 days, # 5 tablet, 0 Refills, Acute 06/12/20 9:10:00 EST, 06/07/20 9:10:00 EST, Tablet, [id number], Partial fill upon patient request if the prescription is for a schedule II opioid drug., 153,... Start Date: 06/07/20 Stop Date: 06/12/20 Status: Ordered metroNIDAZOLE 500 mg oral tablet 1 tablet = 500 mg, By Mouth, 3 times a day, for 5 days, # 15 tablet, 0 Refills, Acute 06/12/20 9:10:00 EST, 06/07/20 9:10:00 EST, Tablet, [id number], Partial fill upon patient request if the prescription is for a schedule II opioid drug., 153,... Start Date: 06/07/20 Stop Date: 06/12/20 Status: Ordered Results Orders for Microbiology Reports Name Date Stool Culture 06/04/20 Blood Culture 06/04/20 Blood Culture #2 06/04/20 Microbiology Reports TEST:Stool Culture STATUS:Auth (Verified) BODY SITE: SOURCE:STOOL COLLECTED DATE/TIME:06/05/20 12:15 PM Stool Culture SPECIMEN DESCRIPTION : STOOL NOT IN TRISH TAN PRESERVATIVE SPECIAL REQUESTS : NONE CULTURE : SPECIMEN NOT RECEIVED IN [facility] TRANSPORT MEDIA, UNABLE TO TEST FOR SHIGA TOXIN. CONTACT [facility] FOR COLLECTION AND TRANSPORT INSTRUCTION AND SUPPLIES NO GROWTH REPORT STATUS : FINAL 06/07/2020 TEST:Blood Culture STATUS:Unauthenticated BODY SITE: SOURCE:Blood COLLECTED DATE/TIME:06/04/20 3:50 AM Blood Culture SPECIMEN DESCRIPTION : BLOOD NO SITE SPECIAL REQUESTS : NONE CULTURE : NO GROWTH 3 DAYS REPORT STATUS : PRELIMINARY REPORT TEST:Blood Culture, Second Order STATUS:Unauthenticated BODY SITE: SOURCE:Blood COLLECTED DATE/TIME:06/04/20 3:50 AM Blood Culture, Second Order SPECIMEN DESCRIPTION : BLOOD NO SITE SPECIAL REQUESTS : NONE CULTURE : NO GROWTH 3 DAYS REPORT STATUS : PRELIMINARY REPORT Vital Signs Most recent to oldest [Reference Range]: 1 2 3 Height 153 cm (06/07/20 7:43 AM) 153 cm (06/07/20 3:41 AM) 153 cm (06/06/20 11:52 PM) Weight 75 kg (06/05/20 6:37 PM) Oxygen Saturation [94-100 %] 97 % (06/07/20 7:43 AM) 95 % (06/07/20 3:41 AM) 96 % (06/06/20 11:52 PM) Pulse Rate [55-90 bpm] 80 bpm (06/07/20 7:43 AM) 76 bpm (06/07/20 3:41 AM) 92 bpm *H* (06/06/20 11:52 PM) Body Mass Index [18.5-24.99] 32.04 *>HHI* (06/05/20 6:37 PM) Blood Pressure [90-138/55-84 mm Hg] 137/70mm Hg (06/07/20 7:43 AM) 127/67mm Hg (06/07/20 3:41 AM) 130/58mm Hg (06/06/20 11:52 PM) Respiratory Rate [16-30 br/min] 16 br/min (06/07/20 7:43 AM) 18 br/min (06/07/20 3:41 AM) 18 br/min (06/06/20 11:52 PM) Temperature [96.8-100.4 DegF] 97.7 DegF (06/07/20 7:43 AM) 98.3 DegF (06/07/20 3:41 AM) 98.7 DegF (06/06/20 11:52 PM) Liters per Minute 0 L/min (06/03/20 12:55 PM) Mode of Delivery (Oxygen) Room air (06/07/20 7:43 AM) Room air (06/07/20 3:41 AM) Room air (06/06/20 11:52 PM) Blood pressure sites Arm, right (06/07/20 7:43 AM) Arm, right (06/07/20 3:41 AM) Arm, right (06/06/20 11:52 PM) Temperature Route Oral (06/07/20 7:43 AM) Oral (06/07/20 3:41 AM) Oral (06/06/20 11:52 PM) Dry Weight 75 kg (06/05/20 6:37 PM)
--- NOTE | 2022-12-23 10:32 | AM.OFFWIN_ITS ---
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 She had severe shingles rash on her left-sided upper chest and neck back in March,. After rash resolved, she continue to have pain along area rash was located. She reports this is constant and feels like someone is slapping her neck. She denies any tingling sensation. She has been using multiple OTC topical products such as tigerbalm without significant relief. She also reports that she is in between PCPs. She recently changed her health insurance, and her current PCP does not except this insurance. 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 [facility] Social History Patient Tobacco Use Status: Former Tobacco user Review of Systems Const All systems reviewed & are unremarkable except as noted in HPI and below Physical Exam Vital Signs: Last Vital Signs Temp 97.9 F 12/23/22 10:36 Pulse 90 12/23/22 10:36 BP 130/80 12/23/22 10:36 Pulse Ox 98 12/23/22 10:36 Oxygen Delivery Method Room Air 12/23/22 10:36 Const General: cooperative, healthy appearing, comfortable and no acute distress Neck Other: tender/sensitive skin extending from left shoulder, along upper left chest, up her L neck to posterior left ear. Neck: Yes normal visual inspection, Yes full ROM and Yes no lymphadenopathy Resp Effort & Inspection: normal respiratory effort and able to speak in complete sentences Auscultation: clear to auscultation bilaterally Cardio Jugular venous distension: no JVD Palpation: normal PMI Rate: regular rate Rhythm: regular rhythm Skin General skin exam: no rashes or lesions noted Extrem General: Yes capillary refill normal and Yes no clubbing, cyanosis or edema Psych Appearance: grossly normal Mental Status: mental status grossly normal Speech and movement: Normal speech and movement present Assessment & Plan Assessment & Plan (1) Post herpetic neuralgia: Code(s): B02.29 - Other postherpetic nervous system involvement Plan: Patient has post herpetic neuralgia in C3/C4 distribution as described above. This is causing her constant, daily pain. She has been using topical products. She is not interested in additional medication such as gabapentin at this time. I discussed referral to pain management office for discussion of potential interventional/injection therapy. She is interested in this and would like referral. (2) On anticoagulant therapy: Code(s): Z79. - shelter (current) use of anticoagulants Plan: Patient is on Eliquis 5 mg p.o. b.i.d. for history of DVT. She is currently in between primary care providers, as her new insurance was not accepted by her PCP office. I encouraged her to contact her insurance company, as they might be able to provide her with in-home or telehealth visits in the interim. I also urged her to stop front desk person prior to leaving today and obtain appointment for new patient visit with a primary care provider within this practice if possible. In the meantime, I will provide 1 month refill of her Eliquis, and great reviewed that this is not something that can continue to be refilled from a walk-in care standpoint. She verbalizes understanding of this. 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 - shelter (current) use of anticoagulants Coding Level of Care Code Est Pt Level 3 (88610) Diagnoses Post herpetic neuralgia B02.29 On anticoagulant therapy
--- OUTSIDE RECORDS SUMMARY | 2022-12-23 10:32 | XMS_ITS | Continuity of Care Document ---
Author Name Unknown Organization [facility] Address [address] [place] [address]- Care Team Providers Care Chain Splitter Name Role Phone Goldy Abarca Primary Care Physician ( [phone] [place] [facility] [place]21 [place] 11/12/21 [facility] [address] [place] [address]- Discharge Disposition: A-D/C Home Attending Physician: Connie [...] oldest [Reference Range]: 1 Height 154.94 cm (09/16/21 1:35 PM) Weight 82.0 kg (09/16/21 1:35 PM) Pulse Rate [55-90 bpm] 99 bpm *H* (09/16/21 1:35 PM) Body Mass Index [18.5-24.99] 34.16 *>HHI* (09/16/21 1:35 PM) Blood Pressure [90-138/55-84 mm Hg] 133/ 73mm Hg (09/16/21 1:35 PM) Temperature [96.8-100.4 DegF] 97.7 DegF (09/16/21 1:35 PM) Blood pressure sites Arm, right (09/16/21 1:35 PM) Temperature Route Temporal (09/16/21 1:35 PM) Dry Weight 82.0 kg (09/16/21 1:35 PM) Weight Obtained Via Standing scale (09/16/21 1:35 PM) Dry Weight Obtained Via Standing scale (09/16/21 1:35 PM)
--- OUTSIDE RECORDS SUMMARY | 2022-12-23 10:32 | XMS_ITS | Continuity of Care Document ---
Author Name Unknown Organization [facility] Address [address] [place] [address]- Care Team Providers Care Concrete Engineer Name Role Phone Jessica MONACO, Connie Primary Care Physician [place] [facility] [place] 04/08/21 - 05/08/21 [facility] [address] [place] [address]- Attending Physician: Leda Thakur Admitting Physician: AdmtrLeda [...] 0 Refills, Maintenance, 04/24/21 13:36:00 EST, Tablet, [id number], Partial fill upon patient request if the prescription is for a schedule II opioid drug., 153, cm, 04/24/21 11:53:00 EST, Height,... Start Date: 04/24/21 Stop Date: 05/15/21 Status: Ordered warfarin 2.5 mg oral tablet 2 tablet = 5 mg, By Mouth, Daily, # 42 tablet, 0 Refills, Maintenance, 05/06/21 10:15:00 EST, Tablet, [id number], Partial fill upon patient request if the prescription is for a schedule II opioid drug., 153, cm, 04/24/21 11:53:00 EST, Height,... Start Date: 05/06/21 Stop Date: 05/27/21 Status: Ordered Problem List Condition Effective Dates Status Health Status Inform ant Obese class I(Confirmed) Active
--- OUTSIDE RECORDS SUMMARY | 2022-12-23 10:32 | XMS_ITS | Continuity of Care Document ---
Author Name Unknown Organization 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 [address] [place] [address]- Attending Physician: Lex Adams DO Referring Physician: Goldy Abarca Allergies, Adverse Reactions, [...] oldest [Reference Range]: 1 Height 153 cm (03/07/21 11:29 AM) Oxygen Saturation [94-100 %] 99 % (03/07/21 11:29 AM) Pulse Rate [55-90 bpm] 71 bpm (03/07/21 11:29 AM) Blood Pressure [90-138/55-84 mm Hg] 106/ 80mm Hg (03/07/21 11:29 AM) Respiratory Rate [16-30 br/min] 17 br/mi n (03/07/21 11:29 AM) Temperature [96.8-100.4 DegF] 97.8 DegF (03/07/21 11:29 AM) Mode of Delivery (Oxygen) Room air (03/07/21 11:29 AM) Blood pressure sites Arm, left (03/07/21 11:29 AM) Temperature Route Temporal (03/07/21 11:29 AM)
[2022-12-23 10:36] VITALS: BP 130/80; PULSE 90; TEMP 36.6; O2SAT 98
== END 2022-12-23 11:07 | disposition home or self-care (01) ==
PROVIDERS: Visit Provider Nurse Practitioner Family
DX: B02.29 Other postherpetic nervous system involvement (principal); Z79.01 Long term (current) use of anticoagulants
CPT/HCPCS: 99213

== ENCOUNTER 2023-06-23 09:35 | Outpatient (AMB) | payer MEDICARE, SELFPAY ==
--- NOTE | 2023-06-23 09:37 | MHC.PC.OV ---
Vital Signs 06/23/23 09:39 Height 4 ft 11.5 in Weight 178 lb 8 oz BMI 35.4 BP 132/68 Blood Pressure Location Lt brachial Position Sitting Pulse 81 Pulse Source Pulse Oximeter Pulse Oximetry (%) 93 Oxygen Delivery Method Room Air Intake Visit Reasons: New patient, patient is on blood thinners Intake Note: Patient is a new patient here to establish care for Chronic pain, History of blood clots. Transferring care from Dr Blevins ([facility]). Medical records have not been requested and have not received. Per daughter inlaw needs to be evaluated for Dementia. Certified Public Accountant Required: No Community Program Assistant: Present Accompanied by: Daughter Allergies Cefalexin Adverse Reaction (Mild, Uncoded 06/23/23 09:39) Rash penicillins Adverse Reaction (Mild, Uncoded 06/23/23 09:39) Rash Tobacco use date assessed: 06/23/23 Fall risk assessment: 1 Fall in past year Last assessed Fall Risk: 06/23/23 Dental Screening Dental Screen Date: 06/23/23 Did you have a dental visit in the last 12 months?: Yes Did you have a dental problem in the last 6 months where you did not have access to dental care?: No Was dental information given to patient?: Patient has dentist HPI New patient, patient is on blood thinners HPI Details 82-year-old female presents to the office requesting to establish her care here. She is transferring her care from a primary care physician who works for [facility]. She is accompanied by her [id number]. Chronic medical conditions include deep vein thrombosis in the left leg, and post herpetic neuralgia. Currently the burning symptoms on the left side of the chest, the remnants of the herpes zoster is the more pressing concern. She has been trying Lyrica with minimal relief. Patient lives alone, her family is very close by, she drives, shops alone. Her [id number] spoke to the medical record librarians teacher, expressing concerns of dementia. [facility] Medical History (Updated 06/23/23 @ 13:32 by Nickolas Marr MD) Postherpetic neuralgia Deep vein thrombosis of left lower extremity Surgical History (Updated 06/23/23 @ 09:52 by KHLOE Lundberg) History of hysterectomy History of surgery of head Family History (Updated 06/23/23 @ 09:52 by KHLOE Lundberg) Other Mental health disorder Social History (Updated 06/23/23 @ 09:38 by KHLOE Lundberg) Housing: House Alcohol intake: never Patient Tobacco Use Status: Former Tobacco user e-Cigarette/Vaping Use: Never Used Second Hand Smoke Exposure: Yes service: No Current occupational status: retired Cognitive needs: No Hearing needs: No Vision needs: Yes (reading glasses) Questionnaire PHQ-9 Over the last 2 weeks, how often have you been bothered by any of the following problems? 1. Little interest or pleasure in doing things: not at all 2. Feeling down, depressed, or hopeless: not at all 3. Trouble falling or staying asleep, or sleeping too much: not at all 4. Feeling tired or having little energy: not at all 5. Poor appetite or overeating: not at all 6. Feeling bad about yourself - or that you are a failure or have let yourself or your family down: not at all 7. Trouble concentrating on things, such as reading the newspaper or watching television: not at all 8. Moving or speaking so slowly that other people could have noticed. Or the opposite - being so fidgety or restless that you have been moving around a lot more than usual: not at all 9. Thoughts that you would be better off or of hurting yourself in some way: not at all Total score: 0 Depression Screening Interpretation: Negative Depression Screening Done: Yes Source: Developed by Drs. Sarhtak Lang, Nory Prasad, Abdelrahman Jordan and colleagues, with an educational cassie from [employer]. Thrive Questionnaire Date Thrive assessed: 06/23/23 I am a: Patient What is your living situation today?: I have a steady place to live Within the past 12 months, did the food you bought not last and you didn't have the money to get more?: Never true Within the past 12 months, did you worry whether your food would run out before you got money to buy more?: Never true Do you have trouble paying for medicines?: No Do you have trouble getting transportation to medical appointments?: No Do you have trouble paying your heating and electricity bill?: No Do you have trouble taking care of your child, family member or friend?: No Do you have trouble with day-to-day activities such as bathing, preparing meals, shopping, managing finances, etc.?: No Are you currently unemployed and looking for a job?: No Are you interested in more education?: No AUDIT C Alcohol Use Questionnaire (AUDIT-C) 1. How often do you have a drink containing alcohol?: Never Total Score: 0 DOROTHEA-7 AMB Questionnaire DOROTHEA-7 Date DOROTHEA - 7 assessed: 06/23/23 Feeling nervous, anxious, or on edge: 0 = Not at all Not being able to stop or control worryin = Not at all Worrying too much about different things: 0 = Not at all Trouble relaxin = Not at all Being so restless that it is hard to sit still: 0 = Not at all Becoming easily annoyed or irritable: 0 = Not at all Feeling afraid as if something awful might happen: 0 = Not at all Total DOROTHEA-7 score (0-4 normal; 5-9 mild; 10-14 moderate; 15-21 severe): 0 Source: Developed by Drs. Sarthak Lang, Nory Prasad, Abdelrahman Jordan and colleagues, with an educational cassie from [employer]. Physical exam (Primary Care) Vital Signs: Last Vital Signs Pulse 81 06/23/23 09:39 BP 132/68 06/23/23 09:39 Pulse Ox 93 06/23/23 09:39 Oxygen Delivery Method Room Air 06/23/23 09:39 BMI result Body Mass Index 35.4 Tobacco/Smoking Status: Tobacco use Status Tobacco use date assessed 06/23/23 06/23/23 09:54 Patient Tobacco Use Status Former Tobacco user 06/23/23 09:54 e-Cigarette/Vaping Use Never Used 06/23/23 09:54 PHQ-9: PHQ-9 Score PHQ-9: Total score 0 06/23/23 09:56 Depression Screening Interpretation: Negative Thrive Assessment: Date of Thrive Assessment Date Thrive assessed 06/23/23 06/23/23 09:54 Const General: cooperative and healthy appearing Nutritional Appearance: well nourished Orientation/consciousness: patient oriented x3 Limitations: no limitations HENMT Head: Yes normal to inspection Eyes General: appearance normal, both eyes and all related structures Neck Neck: Yes normal visual inspection Chest Chest palpation & inspection: normal palpation of entire chest wall Resp Effort & Inspection: normal respiratory effort Neuro General: patient oriented x3 Assessment and Plan Assessment & Plan (1) Postherpetic neuralgia: Code(s): B02.29 - Other postherpetic nervous system involvement Plan: Continue the pregabalin. Capsaicin ointment added to the regimen. Amitriptyline was offered but patient did not want to take the medication. (2) Deep vein thrombosis of left lower extremity: Code(s): I82.402 - Acute embolism and thrombosis of unspecified deep veins of left lower extremity Plan: Patient has been taking apixaban for the past 5 years. She should follow-up with her heat treat inspector to determine if the medication is for life. Patient has agreed to follow-up with her heat treat inspector at [facility]. Coding Level of Care Code Est Pt Level 4 (79947) Diagnoses Postherpetic neuralgia B02.29 Deep vein thrombosis of left lower extremity I82.402
[2023-06-23 09:39] VITALS: BP 132/68; PULSE 81; O2SAT 93; BMI 35.4
== END 2023-06-23 10:43 | disposition home or self-care (01) ==
PROVIDERS: PCP Internal Medicine; Visit Provider Internal Medicine
DX: B02.29 Other postherpetic nervous system involvement (principal); I82.402 Acute embolism and thrombosis of unspecified deep veins of left lower extremity
CPT/HCPCS: 99214

== ENCOUNTER 2023-06-29 09:24 | Outpatient (REF) | payer MEDICARE, SELFPAY ==
[2023-06-29 11:14] LABS: Hematocrit 39.9 % (37.0-47.0); Hemoglobin 12.7 g/dl (12.0-16.0); Mean Corpuscular HGB Conc 31.8 g/dl (31.0-35.0); Mean Corpuscular Hemoglobin 27.2 pg (27.0-33.0); Mean Corpuscular Volume 85.4 fL (80.0-98.0); Platelet Count 257 X10*3/uL (160-400); Red Blood Count 4.67 X10*6/uL (4.20-5.50); Red Cell Distribution Width 13.5 % (11.0-16.0); White Blood Count 7.3 X10*3/uL (4.8-10.8)
[2023-06-29 11:21] LABS: Appearance Urine Clear; Color Urine Yellow; Glucose Urine UA Negative (Negative); Leukocyte Esterase Urine Trace (Negative); Nitrite Urine Negative (Negative); PH 5.5 (5.0-9.0); UMIC TRIGGER UA YES; Urine Blood Small (1+) (Negative); Urine Ketones Negative (Negative); Urine Protein Negative (Neg-Trace)
[2023-06-29 11:38] LABS: Bacteria Urine None Seen (None Seen); Hyaline Casts Urine 0-2 /LPF (0-2); WBC Urine 0-5 /HPF (0-5)
[2023-06-29 12:37] LABS: Alanine Aminotransferase 14 U/L (0-31); Albumin Level 4.1 g/dL (3.5-5.0); Alkaline Phosphatase 98 U/L (39-117); Anion Gap 12 (12-20); Aspartate Amino Transferase 15 U/L (5-31); Bilirubin Direct 0.3 mg/dL (0.0-0.5); Bilirubin Total 0.8 mg/dL (0.0-1.0); Blood Urea Nitrogen 8 mg/dL (9-16); Calcium 9.2 mg/dL (8.4-10.2); Carbon Dioxide 26 mmol/L (22-29); Chloride 109 mmol/L (96-108); Cholesterol 193 mg/dL (<200); Estimated Glomerular Filt Rate > 60; Glucose Random 103 mg/dL (60-115); HDL Cholesterol 46 mg/dL (>40); LDL Cholesterol Calculated 123 mg/dL (<100); Potassium 4.2 mmol/L (3.3-5.1); Sodium 143 mmol/L (135-145); Thyroid Stimulating Hormone 0.54 uIU/mL (0.32-4.0); Total Protein 7.4 g/dL (6.5-8.0); Triglycerides 121 mg/dL (<150)
== END 2023-06-29 09:25 | disposition home or self-care (01) ==
LOC: HO.LAB 09:24
PROVIDERS: PCP Internal Medicine; Visit Provider Internal Medicine
DX: B02.29 Other postherpetic nervous system involvement (principal); I82.402 Acute embolism and thrombosis of unspecified deep veins of left lower extremity
CPT/HCPCS: 36415; 80048; 80061; 80076; 81001; 84443; 85027

== ENCOUNTER 2023-09-23 13:24 | Outpatient (AMB) | payer MEDICARE, SELFPAY ==
--- NOTE | 2023-09-23 13:28 | MHC.PC.OV ---
Vital Signs 09/23/23 13:32 Height 4 ft 11.5 in Weight 192 lb 4 oz BMI 38.2 BP 130/76 Blood Pressure Location Lt brachial Position Sitting Pulse 72 Pulse Source Pulse Oximeter Pulse Oximetry (%) 95 Oxygen Delivery Method Room Air Intake Visit Reasons: 3 month f/u Intake Note: Patient is here to follow up on DVT, Posterpetic Neuralgia. 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: No Wind Turbine Electrical Engineer: Not Required per policy Accompanied by: Self / Same As Patient Allergies Cefalexin Adverse Reaction (Mild, Uncoded 09/29/23 11:06) Rash penicillins Adverse Reaction (Mild, Uncoded 09/29/23 11:06) Rash Medication List - Last Reconciled 09/29/23 by Nickolas Marr MD apixaban (Eliquis) 5 mg PO BID 30 days lidocaine 5% 1 patch topical DAILY pregabalin 150 mg PO BID Tobacco use date assessed: 06/23/23 Fall risk assessment: No Falls in past year Last assessed Fall Risk: 09/23/23 Dental Screening Dental Screen Date: 06/23/23 HPI 3 month f/u HPI Details This dictation was completed on September 28 after speaking to her son via the phone on 09/29/2023. She came to the office alone. 82-year-old female presents to the office to establish her care. She is transferring from [facility] but does not know her primary care physician's name. Patient gives history of DVT and is on an anticoagulant for the last 2 years. Does not recall which hospital she went to to get the diagnosis. Patient is also on pregabalin for post herpetic neuralgia. According to the patient she is getting injections in the right knee for osteoarthritis. [facility] Medical History Postherpetic neuralgia Deep vein thrombosis of left lower extremity Surgical History History of hysterectomy History of surgery of head Family History Other Mental health disorder Social History Housing: House Alcohol intake: never Patient Tobacco Use Status: Former Tobacco user e-Cigarette/Vaping Use: Never Used Second Hand Smoke Exposure: Yes service: No Current occupational status: retired Cognitive needs: No Hearing needs: No Vision needs: Yes (reading glasses) Questionnaire Thrive Questionnaire Date Thrive assessed: 06/23/23 DOROTHEA-7 AMB Questionnaire DOROTHEA-7 Date DOROTHEA - 7 assessed: 06/23/23 Source: Developed by Drs. Sarthak Lang, Nory Prasad, Abdelrahman Jordan and colleagues, with an educational cassie from [employer]. Physical exam (Primary Care) Vital Signs: Last Vital Signs Pulse 72 09/23/23 13:32 BP 130/76 09/23/23 13:32 Pulse Ox 95 09/23/23 13:32 Oxygen Delivery Method Room Air 09/23/23 13:32 BMI result Body Mass Index 38.2 Tobacco/Smoking Status: Tobacco use Status Tobacco use date assessed 06/23/23 09/23/23 13:38 Patient Tobacco Use Status Former Tobacco user 09/23/23 13:38 e-Cigarette/Vaping Use Never Used 09/23/23 13:38 Thrive Assessment: Date of Thrive Assessment Date Thrive assessed 06/23/23 09/23/23 13:38 Const General: cooperative and healthy appearing Nutritional Appearance: well nourished Orientation/consciousness: patient oriented x3 Limitations: no limitations HENMT Head: Yes normal to inspection Eyes General: appearance normal, both eyes and all related structures Neck Neck: Yes normal visual inspection Chest Chest palpation & inspection: normal palpation of entire chest wall Resp Effort & Inspection: normal respiratory effort Neuro General: patient oriented x3 Assessment and Plan Assessment & Plan (1) Deep vein thrombosis of left lower extremity: Code(s): I82.402 - Acute embolism and thrombosis of unspecified deep veins of left lower extremity Plan: I will ask medical office supervisor to determine from the pharmacy who has been prescribing her anticoagulants. Once I determined that, I will request for old records. Patient is unable to give me any history in this regard. (2) Postherpetic neuralgia: Code(s): B02.29 - Other postherpetic nervous system involvement Plan: Again, patient is unable to tell me exactly when she had her infection. Will call the pharmacy to see who has been prescribing her pregabalin. (3) Impaired cognition: Code(s): R41.89 - Other symptoms and signs involving cognitive functions and awareness Plan: I spoke to her son. It did not know much about her medical history. He felt she was competent to make her own decisions. Coding Level of Care Code Est Pt Level 4 (51034) Diagnoses Deep vein thrombosis of left lower extremity I82.402 Postherpetic neuralgia B02.29 Impaired cognition R41.89
[2023-09-23 13:32] VITALS: BP 130/76; PULSE 72; O2SAT 95; BMI 38.2
== END 2023-09-23 15:26 | disposition home or self-care (01) ==
PROVIDERS: PCP Internal Medicine; Visit Provider Internal Medicine
DX: I82.402 Acute embolism and thrombosis of unspecified deep veins of left lower extremity (principal); B02.29 Other postherpetic nervous system involvement; R41.89 Other symptoms and signs involving cognitive functions and awareness
CPT/HCPCS: 99214